=== PATIENT | female | born 1995 | race African-American/Black ===

== ENCOUNTER 2019-09-05 19:36 | Emergency (ER) | payer MEDICAID, SELFPAY ==
--- NOTE | 2019-09-05 20:51 | ULT ---
OB ULTRASOUND: 09/05/19 Transvaginal pelvic ultrasound with hooks scale, color flow and spectral Doppler imaging. HISTORY: Vaginal bleeding, pelvic pain. 18 weeks per patient. FINDINGS: The uterus measures 7.2 x 3.7 x 4 cm without evidence of intrauterine gestational sac, mass or endome trial fluid. The right ovary measures 2.9 x 2 x 2.8 cm and the left ovary measures 2.5 x 1.6 x 2.8 cm . Flow is demonstrated to both ovaries. No adnexal mass or free fluid in the cul-de-sac is seen. IMPRESSION: Unremarkable pelvic ultrasound. No evidence of IUP. RECOMMENDATION: Correlation with serial serum beta HCG levels and follow-up ultrasound would be helpful. POS: MICHELLE
[2019-09-05 20:58] LABS: #Basophils 0.1 thou/uL (0.0-0.2); #Eosinphils 0.2 thou/uL (0.0-0.7); #Lymphocytes 2.8 thou/uL (1.20-3.40); #Monocytes 0.7 thou/uL (0.11-0.59); #Neutrophils 5.9 thou/uL (1.40-6.50); %Basophils 0.8 % (0.0-1.0); %Eosinophils 2.2 % (0.0-10.0); %Lymphocytes 29.1 % (21.0-51.0); %Monocytes 7.4 % (0.0-10.0); %Neutrophils 60.5 % (42.0-75.0); Hemoglobin 13.5 g/dL (12.0-16.0); Mean Corpuscular HGB CONC 31.2 g/dL (32.0-36.0); Mean Corpuscular Hemoglobin 28.7 pg (27.0-31.0); Mean Corpuscular Volume 92.1 fL (78.0-98.0); Mean Platelet Volume 7.1 fL (7.4-10.4); Platelet Count 323 thou/uL (130-400); RBC Distribution Width 14.1 % (11.5-14.5); Red Blood Cell (RBC) Count 4.71 mill/uL (4.20-5.40); White Blood Cell (WBC) Count 9.7 thou/uL (4.8-10.8)
[2019-09-05 21:17] LABS: Clarity Cloudy (Clear)
[2019-09-05 21:18] LABS: Bilirubin Unable to Interpret (Negative); Glucose, Urine (Dipstick) Unable to Interpret mg/dL (Negative); Leukocyte Unable to Interpret Leu/uL (Negative); Nitrite Unable to Interpret (Negative); Protein, Urine (Dipstick) Unable to Interpret mg/dL (Neg-Trace); Urobilinogen UNABLE TO INTERPRET mg/dL (Less than 2)
[2019-09-05 21:20] LABS: Blood, Urine Large (Negative)
[2019-09-05 21:22] LABS: RBC/HPF Greater than 50 HPF (0-3)
[2019-09-05 21:23] LABS: Bacteria/HPF 4+ HPF (None Seen); WBC/HPF Greater Than 50 HPF (0-3)
[2019-09-05 21:24] LABS: Trichomonas/HPF 1+ HPF (None Seen)
== END 2019-09-05 20:11 ==
LOC: ERS 19:36
DX: O20.9 Hemorrhage in early pregnancy, unspecified (principal); Z3A.18 18 weeks gestation of pregnancy
CPT/HCPCS: 36415; 76856; 81003; 81015; 84702; 85025; 86900; 86901

== ENCOUNTER 2019-09-06 16:00 | Emergency (ER) | payer SELFPAY ==
[2019-09-06] MEDS ORDERED: Acetaminophen 500 MG TAB ONE (17:19)
[2019-09-06] MEDS ORDERED: Famotidine 20 MG TAB ONE (18:15)
[2019-09-09 20:27] LABS: Chlamydia by PCR Not Detected (NotDetected); GC by PCR Not Detected (NotDetected)
== END 2019-09-06 18:56 ==
LOC: ERS 16:00
DX: N94.6 Dysmenorrhea, unspecified (principal)
CPT/HCPCS: 36415; 84702; 87480; 87491; 87510; 87591; 87660; 99284